=== PATIENT | female | born 1985 ===

== ENCOUNTER 2022-04-15 16:16 | Emergency (ER) | payer SELFPAY ==
[~2022-04-15] VITALS: Ht 170.2 cm; Wt 90.9 kg
[2022-04-16 00:45] LABS: GLUCOSE, URINE (UA) NEGATIVE (NEGATIVE); LEUKOCYTE ESTERASE ,URINE NEGATIVE (NEGATIVE); NITRATE,URINE NEGATIVE (NEGATIVE); OCCULT BLOOD,URINE NEGATIVE (NEGATIVE); PH,URINE 5.5 (5.0-8.0); PROTEIN,URINE 30-70 mg/dL (NEGATIVE); SPECIFIC GRAVITIY, URINE 1.038 (1.003-1.030)
[2022-04-16 00:46] LABS: BILIRUBIN,URINE SMALL (NEGATIVE)
[2022-04-16 00:47] LABS: APPEARANCE,URINE HAZY (CLEAR)
[2022-04-16 00:50] LABS: AMPHET/METH SCREEN,URINE POSITIVE (NEGATIVE); BARBITURATE SCREEN, URINE NEGATIVE (NEGATIVE); BENZODIAZEPINES SCREEN,URINE NEGATIVE (NEGATIVE); CANNABINOID SCREEN,URINE NEGATIVE (NEGATIVE); COCAINE SCREEN,URINE NEGATIVE (NEGATIVE); METHADONE SCREEN, URINE NEGATIVE (NEGATIVE); OPIATE SCREEN,URINE NEGATIVE (NEGATIVE)
[2022-04-16 00:53] LABS: PHENCYCLIDINE SCREEN,URINE NEGATIVE (NEGATIVE)
[2022-04-16] MEDS ORDERED: MetroNIDAZOLE 250 MG TABLET PO ONE (01:00)
[2022-04-16 01:23] LABS: EOSINOPHILS % (AUTO) 2.2 % (1.0-6.0); HEMATOCRIT 37.3 % (36-46); HEMOGLOBIN 12.3 g/dL (12.0-16.0); LYMPHOCYTES # (AUTO) 2.3 K/uL (1.0-4.8); LYMPHOCYTES % (AUTO) 28.5 % (22.0-44.0); MEAN CORPUSCULAR HEMOGLOBIN 29.2 pg (26.0-34.0); MEAN CORPUSCULAR HGB CONC 32.9 G/dL (31.0-37.0); MEAN CORPUSCULAR VOLUME 89 fL (80-100); MONOCYTES # (AUTO) 0.6 K/uL (0.1-1.0); MONOCYTES % (AUTO) 7.6 % (2.0-9.0); NEUTROPHILS # (AUTO) 4.9 K/uL (1.8-7.7); NEUTROPHILS % (AUTO) 60.7 % (40.0-70.0); PLATELET COUNT (AUTO) 263 K/uL (150-450); RED CELL DISTRIBUTION WIDTH 15.2 % (11.5-14.5)
[2022-04-16] MEDS ORDERED: AZITHROMYCIN 500 MG TABLET PO ONE (01:30)
[2022-04-16] MEDS ORDERED: CefTRIAXone SODIUM 1 GM/VIAL IM ONE (01:30)
[2022-04-16] MEDS ORDERED: LIDOCAINE/PF 1% 2 ML VIAL IM ONE (01:30)
[2022-04-16 01:35] LABS: ANION GAP 5 mmol/L (8-16); CALCIUM, TOTAL 9.3 mg/dL (8.8-10.5); CARBON DIOXIDE 30 mmol/L (22-29); CHLORIDE 101 mmol/L (98-107); CREATININE 0.83 mg/dL (0.60-1.30); GLUCOSE,RANDOM 110 mg/dL (70-110); SODIUM SERUM 136 mmol/L (136-145); UREA NITROGEN, BLOOD 21 mg/dL (7-18)
[2022-04-16 01:36] LABS: GLOMERULAR FILTR. RATE CALC > 60 mL/min (>60)
[2022-04-16 01:41] LABS: ALANINE AMINOTRANSFERASE 33 U/L (12-78); ALBUMIN 2.9 g/dL (3.4-5.0); ALKALINE PHOSPHATASE 116 U/L (46-116); ASPARTATE AMINOTRANSFERASE 28 U/L (15-37); BILIRUBIN,TOTAL 0.3 mg/dL (0.1-1.0); TOTAL PROTEIN, SERUM 7.2 g/dL (6.4-8.2)
[2022-04-16] MEDS ORDERED: METR500 PO (03:33)
[2022-04-16 05:04] VITALS: BP 126/77
== END 2022-04-16 06:30 | disposition home or self-care (01) ==
LOC: EMS 16:17
DX: N76.0 Acute vaginitis (principal); F15.90 Other stimulant use, unspecified, uncomplicated
CPT/HCPCS: 99283; 80053; 81003; 84703; 85025; 36415; 87491; 87591; 80307; 96372; G0480; J0696; J3490; Q9967